=== PATIENT | female | born 1945 | race Caucasian/White ===

== ENCOUNTER 2019-06-02 12:07 | Observation (INO) | payer OTHER ==
[2019-06-02 12:25] VITALS: BMI 24.7
--- NOTE | 2019-06-02 12:57 | EKG ---
Test Reason : Blood Pressure : / mmHG Vent. Rate : 087 BPM Atrial Rate : 087 BPM P-R Int : 148 ms QRS Dur : 098 ms QT Int : 372 ms P-R-T Axes : 058 009 052 degrees QTc Int : 447 ms SINUS RHYTHM WITH OCCASIONAL PREMATURE VENTRICULAR COMPLEXES POSSIBLE LEFT ATRIAL ENLARGEMENT BORDERLINE ECG NO PREVIOUS ECGS AVAILABLE Confirmed by MD VANESA, DAYTON ([id number]) on 06/02/2019 12:56:33 PM Referred By: Confirmed By:DAYTON ALEXIS MD
[2019-06-02] MEDS ORDERED: FAMOTIDINE 20 MG TABLET PO ONE (13:43)
[2019-06-02] MEDS ORDERED: MAG HYDROX/AL HYDROX/SIMETH -MYLANTA- ORAL SUSPENSION PO ONE (13:43)
--- NOTE | 2019-06-02 13:47 | PDOC ---
History of Present Illness - General Chief Complaint: Chest Pain Stated Complaint: CHEST PAIN Time Seen by Provider: 06/02/19 13:15 - History of Present Illness Initial Comments: Radha Morgan is a 74 y/o female with reported PMH significant for HTN, HLD, DM, presenting with lower sternal chest pain and pain "at the mouth of her stomach" that started at 7:30am yesterday. Reports that the pain lasted for around 15 min and then subsided. No pain radiation. At 3:30am this morning she had a similar type of pain but more severe, lost consciousness, fell, and woke up on the ground. Denies prodome, dizziness, heart palpitations. Denies dysuria/diarrhea. Denies lower extremity swelling. Denies headache. Denies vision changes. Past History - Past Medical History Allergies/Adverse Reactions: Allergies Allergy/AdvReac Type Severity Reaction Status Date / Time No Known Allergies Allergy Verified 06/02/19 12:20 Home Medications: Ambulatory Orders Unobtainable 06/02/19 COPD: No Diabetes: Yes - Psycho Social/Smoking Cessation Hx Smoking History: Never smoked Hx Alcohol Use: No Drug/Substance Use Hx: No Substance Use Type: None Review of Systems - Review of Systems Comments:: GENERAL/CONSTITUTIONAL: No fever or chills. No weakness._ HEAD, EYES, EARS, NOSE AND THROAT: No change in vision. No change in hearing. No sore throat._ CARDIOVASCULAR: Reports mild chest pain. No shortness of breath. RESPIRATORY: Denies cough, hemoptysis_ GASTROINTESTINAL: Reports nausea. No vomiting, diarrhea or constipation._ GENITOURINARY: No dysuria, frequency, or change in urination._ MUSCULOSKELETAL: No joint or muscle swelling or pain. No neck or back pain._ SKIN: No rash_ NEUROLOGIC: Reports LOC. No headache, vertigo, or change in strength/sensation._ ENDOCRINE: No increased thirst. No abnormal weight change_ HEMATOLOGIC/LYMPHATIC: No anemia, easy bleeding, or history of blood clots._ ALLERGIC/IMMUNOLOGIC: No hives or skin allergy._ *Physical Exam - Vital Signs Last Vital Signs Temp Pulse Resp BP Pulse Ox 97.8 F 94 H 18 119/65 99 06/02/19 12:24 06/02/19 12:24 06/02/19 12:24 06/02/19 12:24 06/02/19 12:24 - Physical Exam GENERAL: Awake, alert, and oriented to person/place/time, in no acute distress_ HEAD: No signs of trauma, normocephalic, atraumatic _ EYES: PERRLA, EOMI, sclera anicteric, conjunctiva clear_ ENT: Hearing grossly normal, nares patent, oropharynx clear without exudates. No uvular deviation. Moist mucosa_ NECK: Normal ROM, supple, no lymphadenopathy, JVD, or masses_ LUNGS: No distress, speaks in full sentences, clear to auscultation bilaterally _ HEART: Regular rate and rhythm, normal S1 and S2, no murmurs appreciated, peripheral pulses normal and equal bilaterally._ ABDOMEN: Soft, nontender, normoactive bowel sounds. No guarding, no rebound. No masses_ EXTREMITIES: Normal inspection, Normal range of motion, no edema. No clubbing or cyanosis_ NEUROLOGICAL: CN II-XII tested and intact. Sensation intact to sharp/dull differentiation in all extremities. Motor: Normal tone and bulk. No abnormal movements appreciated. No pronator drif t. Strength tested and 5/5 in bilateral wrist flexion/extension, elbow flexion/extension, shoulder abduction, straight leg raise, knee flexion/extension, ankle dorsiflexion/plantarflexion. Patient ambulates with a steady gait. Coordination: Finger to nose and heel to sommer testing intact bilaterally. SKIN: Warm, Dry, normal turgor, no rashes or lesions noted_ ED Treatment Course - LABORATORY CBC & Chemistry Diagram: 06/02/19 13:36 06/02/19 13:36 - ADDITIONAL ORDERS Additional order review: Laboratory Results 06/02/19 13:36 Sodium 138 Potassium 4.2 Chloride 104 Carbon Dioxide 27 Anion Gap 7 L BUN 18.7 H Creatinine 0.8 Est GFR (CKD-EPI)AfAm 84.18 Est GFR (CKD-EPI)NonAf 72.63 Random Glucose 144 H Calcium 9.3 Total Bilirubin 0.7 AST 82 H ALT 83 H Alkaline Phosphatase 180 H Creatine Kinase 46 Troponin I < 0.02 Total Protein 7.4 Albumin 3.9 06/02/19 13:36 RBC 5.05 MCV 82.0 MCHC 33.0 RDW 14.4 MPV 7.5 Neutrophils % 86.0 H Lymphocytes % 8.9 Monocytes % 4.5 Eosinophils % 0.4 Basophils % 0.2 - RADIOLOGY Radiology Studies Ordered: Category Date Time Status CHEST X-RAY PORTABLE* [RAD] Stat Radiology 06/02/19 13:33 Completed - Medications Given in the ED: ED Medications Discontinued Medications Generic Name Dose Route Start Last Admin Trade Name Wesleyq PRN Reason Stop Dose Admin Al Hydroxide/Mg Hydroxide 30 ml 06/02/19 13:43 06/02/19 14:00 Mylanta Suspension - PO 06/02/19 13:44 30 ml ONCE ONE Administration Famotidine 20 mg 06/02/19 13:43 06/02/19 14:00 Pepcid - PO 06/02/19 13:44 20 mg ONCE ONE Administration Medical Decision Making - Medical Decision Making 06/02/19 13:55 74F presenting s/p lower sternal chest pain, fall, and syncope. -cbc, cmp -ekg, trop, cxr -ct head -ua, ucx -GI cocktail 06/02/19 13:56 EKG shows sinus rhythm with premature ventricular complexes, 87 bpm, no ST elevation, QTc 447. 06/02/19 14:58 CT head negative for acute bleed or intracranial pathology. CXR negative for acute chest pathology. 06/02/19 14:59 Labs reviewed. Laboratory Last Values WBC 6.0 K/mm3 (4.0-10.0) 06/02/19 13:36 RBC 5.05 M/mm3 (3.60-5.2) 06/02/19 13:36 Hgb 13.7 GM/dL (10.7-15.3) 06/02/19 13:36 Hct 41.4 % (32.4-45.2) 06/02/19 13:36 MCV 82.0 fl (80-96) 06/02/19 13:36 MCH 27.1 pg (25.7-33.7) 06/02/19 13:36 MCHC 33.0 g/dl (32.0-36.0) 06/02/19 13:36 RDW 14.4 % (11.6-15.6) 06/02/19 13:36 Plt Count 209 K/MM3 (134-434) 06/02/19 13:36 MPV 7.5 fl (7.5-11.1) 06/02/19 13:36 Absolute Neuts (auto) 5.2 K/mm3 (1.5-8.0) 06/02/19 13:36 Neutrophils % 86.0 % (42.8-82.8) H 06/02/19 13:36 Lymphocytes % 8.9 % (8-40) 06/02/19 13:36 Monocytes % 4.5 % (3.8-10.2) 06/02/19 13:36 Eosinophils % 0.4 % (0-4.5) 06/02/19 13:36 Basophils % 0.2 % (0-2.0) 06/02/19 13:36 Nucleated RBC % 0 % (0-0) 06/02/19 13:36 Sodium 138 mmol/L (136-145) 06/02/19 13:36 Potassium 4.2 mmol/L (3.5-5.1) 06/02/19 13:36 Chloride 104 mmol/L (98-107) 06/02/19 13:36 Carbon Dioxide 27 mmol/L (21-32) 06/02/19 13:36 Anion Gap 7 MMOL/L (8-16) L 06/02/19 13:36 BUN 18.7 mg/dL (7-18) H 06/02/19 13:36 Creatinine 0.8 mg/dL (0.55-1.3) 06/02/19 13:36 Est GFR (CKD-EPI)AfAm 84.18 06/02/19 13:36 Est GFR (CKD-EPI)NonAf 72.63 06/02/19 13:36 Random Glucose 144 mg/dL (74-106) H 06/02/19 13:36 Calcium 9.3 mg/dL (8.5-10.1) 06/02/19 13:36 Total Bilirubin 0.7 mg/dL (0.2-1) 06/02/19 13:36 AST 82 U/L (15-37) H 06/02/19 13:36 ALT 83 U/L (13-61) H 06/02/19 13:36 Alkaline Phosphatase 180 U/L (45-117) H 06/02/19 13:36 Creatine Kinase 46 U/L (26-192) 06/02/19 13:36 Troponin I < 0.02 ng/ml (0.00-0.05) 06/02/19 13:36 Total Protein 7.4 g/dl (6.4-8.2) 06/02/19 13:36 Albumin 3.9 g/dl (3.4-5.0) 06/02/19 13:36 06/02/19 15:25 D/w Dr. Lopez who accepts the pt for admission under Dr. Koch. Discharge - Discharge Information Problems reviewed: Yes Clinical Impression/Diagnosis: Syncope Condition: Stable - Admission Yes - Follow up/Referral Referrals: Demarco Jiang MD [Primary Care Provider] - - Patient Discharge Instructions - Post Discharge Activity
[2019-06-02] MEDS ORDERED: MAG HYDROX/AL HYDROX/SIMETH 30 ML UNIT-DOSE CUP ONE (13:57)
[2019-06-02] MEDS ORDERED: FAMOTIDINE 20 MG TABLET ONE (13:57)
[2019-06-02 14:05] LABS: BASO % 0.2 % (0-2.0); EOS % 0.4 % (0-4.5); HEMATOCRIT 41.4 % (32.4-45.2); HEMOGLOBIN 13.7 GM/dL (10.7-15.3); LYMPH % 8.9 % (8-40); MCH 27.1 pg (25.7-33.7); MEAN PLT VOLUME 7.5 fl (7.5-11.1); MONO % 4.5 % (3.8-10.2); PLATELET COUNT 209 K/MM3 (134-434); RBC 5.05 M/mm3 (3.60-5.2); RDW 14.4 % (11.6-15.6)
[2019-06-02 14:34] LABS: ALBUMIN 3.9 g/dl (3.4-5.0); ALK PHOS 180 U/L (45-117); ANION GAP 7 MMOL/L (8-16); BILIRUBIN,TOTAL 0.7 mg/dL (0.2-1); BLOOD UREA NITROGEN 18.7 mg/dL (7-18); CALCIUM 9.3 mg/dL (8.5-10.1); CHLORIDE 104 mmol/L (98-107); CO2 27 mmol/L (21-32); CREATININE 0.8 mg/dL (0.55-1.3); GLUCOSE,RANDOM 144 mg/dL (74-106); POTASSIUM 4.2 mmol/L (3.5-5.1); SGOT/AST 82 U/L (15-37); SGPT/ALT 83 U/L (13-61); SODIUM 138 mmol/L (136-145); TOT PROT 7.4 g/dl (6.4-8.2)
--- NOTE | 2019-06-02 15:21 | PDOC ---
Documentation entered by Kristin Das SCRIBE, acting as scribe for Cristobal Pizarro MD. Cristobal Pizarro MD: This documentation has been prepared by the Thiago riggins Xhesika, SCRIBE, under my direction and personally reviewed by me in its entirety. I confirm that the documentation accurately reflects all work, treatment, procedures, and medical decision making performed by me. Attending Attestation - Resident Resident Name: Michael Barber - ED Attending Attestation I have performed the following: I have examined & evaluated the patient, The case was reviewed & discussed with the resident, I agree w/resident's findings & plan, Exceptions are as noted - HPI HPI: 06/02/19 14:08 The patient is a 74 year old female with a significant PMH of HTN, HLD, DM who presents to the emergency department for chest pain since yesterday. Pt states her symptoms last approximately 15 minutes before self resolving and recurring again. Pt states she had another episode this morning causing her to lose consciousness and fall, prompting her arrival to the ED. The patient denies, shortness of breath, headache and dizziness. Denies fever, chills, cough, nausea, vomiting, diarrhea and constipation. Allergies: NKDA - Physicial Exam PE: 06/02/19 15:18 EXAMINATION CONSTITUTIONAL: Awake and alert; well-nourished; in no apparent distress HEAD: Normocephalic; atraumatic EYES: PERRL; EOM intact ; No nystagmus ENMT: External appears normal; normal oropharynx NECK: Supple; non-tender; no cervical lymphadenopathy CARD: Normal S1, S2; 2/6 systolic ejection murmurs, no rubs, or gallops RESP: Normal chest excursion with respiration; breath sounds clear and equal bilaterally; no wheezes, rhonchi, or rales ABD: Soft, non-distended; non-tender; no palpable organomegaly, no palpable hernias EXT: Normal ROM in all four extremities; non-tender to palpation; distal pulses intact SKIN: Warm, dry, no rash NEURO: Cranial nerves II through XII grossly intact; motor is five 5 x 4; no pronation drift; gait is stable - Medical Decision Making 06/02/19 15:20 74-year-old female with multiple committees presents with several episodes of chest pain and syncope. Will obtain CT head to rule out intracranial pathology. EKG shows sinus rhythm with frequent APBs with sinus pauses; will obtain CBC/CMP/cardiac profile. Likely admission.
--- NOTE | 2019-06-02 16:41 | HP ---
CHIEF COMPLAINT: PCP: HISTORY OF PRESENT ILLNESS: Pt is a 74 yo F with PMHx of DM, HTN, arthritis presenting from home after a syncopal attack today. Pt reports having abdominal pain, more epigastric when she woke up with nausea about 3am this morning. As she headed to the bathroom she suddenly fell. No prodromal symptoms, no dizziness, no chest pain, no bladder or bowel incontinence. Pt is unaware how long she was on the floor. Noted a bruise on her face. Pt woke up covered in sweat. No bowel or bladder incontinence. No fever, no hx of seizures. Pt had similar abdominal cramps yesterday evening with nausea, no vomiting. No loose stools, no bloody stools, Has had colonosocopy in the past. Pt drove herself to [facility] today to book her routine mamogram and do an Xray and was referred from there to the ED. Pt denies sick contact or travel, no cough, no leg swelling. Pt did not take her meds today. She goes to Dr Jiang at [address] [place] [id number] who she reports gives her meds, she has no pharmacy that she uses. Listed pharmacy in EMR does not carry her meds. Unable to verify her medications ER course was notable for: (1) CT head-neg, CXR- neg (2) Mylanta (3) Recent Travel: PAST MEDICAL HISTORY: PAST SURGICAL HISTORY: Varicose vein surgery Social History: Smoking:Denies Alcohol:social hx Drugs: Denies Allergies No Known Allergies Allergy (Verified 06/02/19 12:20) HOME MEDICATIONS: Home Medications Medication Instructions Recorded Unobtainable 06/02/19 REVIEW OF SYSTEMS CONSTITUTIONAL: Absent: fever, chills, diaphoresis, generalized weakness, malaise, loss of appetite, weight change HEENT: Absent: rhinorrhea, nasal congestion, throat pain, throat swelling, difficulty swallowing, mouth swelling, ear pain, eye pain, visual changes CARDIOVASCULAR: Absent: chest pain, syncope, palpitations, irregular heart rate, lightheadedness, peripheral edema RESPIRATORY: Absent: cough, shortness of breath, dyspnea with exertion, orthopnea, wheezing, stridor, hemoptysis GASTROINTESTINAL: Absent: abdominal pain, abdominal distension, nausea, vomiting, diarrhea, constipation, melena, hematochezia GENITOURINARY: Absent: dysuria, frequency, urgency, hesitancy, hematuria, flank pain, genital pain MUSCULOSKELETAL: Absent: myalgia, arthralgia, joint swelling, back pain, neck pain SKIN: Absent: rash, itching, pallor HEMATOLOGIC/IMMUNOLOGIC: Absent: easy bleeding, easy bruising, lymphadenopathy, frequent infections ENDOCRINE: Absent: unexplained weight gain, unexplained weight loss, heat intolerance, cold intolerance NEUROLOGIC: Absent: headache, focal weakness or paresthesias, dizziness, unsteady gait, seizure, mental status changes, bladder or bowel incontinence PSYCHIATRIC: Absent: anxiety, depression, suicidal or homicidal ideation, hallucinations. PHYSICAL EXAMINATION Vital Signs - 24 hr 06/02/19 12:24 Temperature 97.8 F Pulse Rate 94 H Respiratory 18 Rate Blood Pressure 119/65 O2 Sat by Pulse 99 Oximetry (%) GENERAL: Awake, alert, and fully oriented, in no acute distress. HEAD: Normal with no signs of trauma. EYES: Pupils equal, round and reactive to light, extraocular movements intact, sclera anicteric, conjunctiva clear. No lid lag. EARS, NOSE, THROAT: Moist mucous membranes. NECK: Normal range of motion, supple without lymphadenopathy, JVD, or masses. LUNGS: Breath sounds equal, clear to auscultation bilaterally. No wheezes, and no crackles. HEART: Regular rate and rhythm, normal S1 and S2 , absent orthostatics ABDOMEN: Soft, nontender, not distended, normoactive bowel sounds, no guarding, no rebound, no masses. MUSCULOSKELETAL: Hesitancy with active L shoulder motion (chronic) No redness, distinct bicep muscle bulk anteriorly UPPER EXTREMITIES: 2+ pulses, warm, well-perfused. No cyanosis. No clubbing. No peripheral edema. LOWER EXTREMITIES: 2+ pulses, warm, well-perfused. No calf tenderness. No peripheral edema. NEUROLOGICAL: AAOx 3, no facial droop. Normal strength b/l LE, RLE. Slight L shoulder restriction of movement. Cranial nerves II-XII intact. Normal speech. Gait not observed Laboratory Results - last 24 hr 06/02/19 06/02/19 13:36 13:36 WBC 6.0 RBC 5.05 Hgb 13.7 Hct 41.4 MCV 82.0 MCH 27.1 MCHC 33.0 RDW 14.4 Plt Count 209 MPV 7.5 Absolute Neuts (auto) 5.2 Neutrophils % 86.0 H Lymphocytes % 8.9 Monocytes % 4.5 Eosinophils % 0.4 Basophils % 0.2 Nucleated RBC % 0 Sodium 138 Potassium 4.2 Chloride 104 Carbon Dioxide 27 Anion Gap 7 L BUN 18.7 H Creatinine 0.8 Est GFR (CKD-EPI)AfAm 84.18 Est GFR (CKD-EPI)NonAf 72.63 Random Glucose 144 H Calcium 9.3 Total Bilirubin 0.7 AST 82 H ALT 83 H Alkaline Phosphatase 180 H Creatine Kinase 46 Troponin I < 0.02 Total Protein 7.4 Albumin 3.9 ASSESSMENT/PLAN: Pt is a 74 yo F with PMHx of DM, HTN, arthritis presenting from home after a syncopal attack today. Pt reports having abdominal pain, more epigastric when she woke up with nausea about 3am this morning. As she headed to the bathroom she suddenly fell. #Syncope possibly vasovagal r/o cardiogenic Associated with nausea, reports excessive sweating No prior cardiac events Absent orthostatics carotid US Echo #S/p fall CT head neg R eye brow bruise, no active bleed Pt reports independence in ADL, drove herself to hospital fall precautions #DM Unable to confirm home meds Pt placed on ISS BGM Diabetic diet #HTN Pt reports being on lisinopril 10mg Unable to confirm home meds #arthritis Reports falling on R knee No obvious swelling or erythema, no joint deformity Will monitor #Elevated liver enzymes Pt with nausea and abdominal pain Hepatitis panel Abd US tele obs Visit type - Emergency Visit Emergency Visit: Yes ED Registration Date: 06/02/19 Care time: The patient presented to the Emergency Department on the above date and was hospitalized for further evaluation of their emergent condition. - New Patient This patient is new to me today: Yes Date on this admission: 06/02/19 - Critical Care Critical Care patient: No ATTENDING PHYSICIAN STATEMENT I saw and evaluated the patient. I reviewed the resident's note and discussed the case with the resident. I agree with the resident's findings and plan as documented. SUBJECTIVE: OBJECTIVE: ASSESSMENT AND PLAN:
--- NOTE | 2019-06-02 16:50 | PN ---
Teaching Attending Note Name of Resident: Jerrica Lopez ATTENDING PHYSICIAN STATEMENT I saw and evaluated the patient. I reviewed the resident's note and discussed the case with the resident. I agree with the resident's findings and plan as documented. SUBJECTIVE: Pt is a 74 yo F with PMHx of DM, HTN, arthritis presenting from home after a syncopal attack today. Pt reports having abdominal pain, more epigastric when she woke up with nausea about 3am this morning. As she headed to the bathroom she suddenly fell. only prodromal pain in the epigastric and nausea, and wanted to throw up symptoms, no dizziness, no chest pain, no bladder or bowel incontinence. Pt woke up covered in sweat. No bowel or bladder incontinence. No fever, no hx of seizures. Pt had similar abdominal cramps yesterday evening with nausea, no vomiting. No loose stools, no bloody stools, Has had colonsocopy in the past. Pt drove herself to [facility] today to book her routine mamogram and do and Xray and was referred from there to the ED. Pt denies sick contact or travel, no cough, no leg swelling. Pt did not take her meds today. OBJECTIVE: O/E is comfortable, nad alert awake oriented into 3, vss neck supple no jvd cvs s1/s2/0 chest ctab abd benign ext no c/c/e neuro non focal ASSESSMENT AND PLAN: ASSESSMENT/PLAN: Syncope possibly vasovagal r/o cardiogenic tele obs carotid US Echo dm diet ISS fall precautions will get the list of the home meds and fu, ct head is negative, tele bc ekg shows pvcs, r;o cardiac cause,
[2019-06-02 17:12] LABS: PH,URINE 5.5 (5.0-8.0); URINE APPEARANCE CLEAR; URINE BILIRUBIN NEGATIVE (NEGATIVE); URINE COLOR YELLOW; URINE GLUCOSE (UA) 3+ (NEGATIVE); URINE KETONE TRACE (NEGATIVE); URINE LEUK ESTERASE NEGATIVE (NEGATIVE); URINE NITRITE NEGATIVE (NEGATIVE); URINE PROTEIN NEGATIVE (NEGATIVE); URINE UROBILINOGEN 0.2 mg/dL (0.2-1.0)
[2019-06-02 17:17] VITALS: TEMP 98.5
[2019-06-02] MEDS ORDERED: INSULIN SLIDING SCALE (NOVOLOG) 1 VIAL SQ SCH ×2 (22:00)
[2019-06-02] MEDS ORDERED: INSULIN (NOVOLOG) ASPART 100 UNITS/ML 10ML VIAL ONE (22:16)
[2019-06-03 06:28] LABS: BASO % 0.7 % (0-2.0); EOS % 1.3 % (0-4.5); HEMATOCRIT 39.6 % (32.4-45.2); HEMOGLOBIN 13.3 GM/dL (10.7-15.3); LYMPH % 14.3 % (8-40); MCH 27.2 pg (25.7-33.7); MCHC 33.6 g/dl (32.0-36.0); MEAN PLT VOLUME 7.8 fl (7.5-11.1); MONO % 9.9 % (3.8-10.2); NEUT % 73.8 % (42.8-82.8); PLATELET COUNT 171 K/MM3 (134-434); RBC 4.89 M/mm3 (3.60-5.2); RDW 14.1 % (11.6-15.6); WHITE BLOOD COUNT 4.1 K/mm3 (4.0-10.0)
[2019-06-03 06:41] LABS: INR 1.13 (0.83-1.09); PROTHROMBIN TIME (PATIENT) 13.4 SEC (9.7-13.0)
[2019-06-03 06:44] LABS: ACTIVATED PTT 37.3 SECONDS (25.2-36.5)
[2019-06-03 06:59] LABS: ALBUMIN 3.3 g/dl (3.4-5.0); ALK PHOS 160 U/L (45-117); ANION GAP 9 MMOL/L (8-16); BILIRUBIN,TOTAL 0.9 mg/dL (0.2-1); BLOOD UREA NITROGEN 17.8 mg/dL (7-18); CALCIUM 8.3 mg/dL (8.5-10.1); CHLORIDE 105 mmol/L (98-107); CO2 25 mmol/L (21-32); CREATININE 0.6 mg/dL (0.55-1.3); GLUCOSE,RANDOM 116 mg/dL (74-106); MAGNESIUM 1.5 mg/dL (1.8-2.4); PHOSPHOROUS 3.1 mg/dL (2.5-4.9); SGOT/AST 46 U/L (15-37); SGPT/ALT 70 U/L (13-61); SODIUM 139 mmol/L (136-145); TOT PROT 6.7 g/dl (6.4-8.2)
[2019-06-03 07:31] VITALS: BP 121/75; PULSE 66
[2019-06-03] MEDS ORDERED: MAGNESIUM SULF 50% (8.12 MEQ/2 ML-1 GM VIAL) IVPB ONE (07:45)
[2019-06-03] MEDS ORDERED: MAGNESIUM 1GM/D5W - 1 GM/100 ML IVPB IVPB ONE (07:53)
[2019-06-03] MEDS ORDERED: ENOXAPARIN NA (PORCINE) 40 MG/0.4 ML DISP.SYRIN SQ SCH (10:00)
[2019-06-03] MEDS ORDERED: ENOXAPARIN NA (PORCINE) 60 MG/0.6 ML DISP.SYRIN SQ ONE (10:16)
--- NOTE | 2019-06-03 11:31 | ECHO ---
Name: HEATHER NOBLEANTINA Exam:Adult Echocardiogram Study Date: 06/03/2019 10:25 AM Age: 74 yrs Reason For Study: Syncope R/O cardiogenic Height: 61 in Weight: 131 lb BSA: 1.6 m2 MMode/2D Measurements & Calculations IVSd: 0.90 cm Ao root diam: 3.0 cm LVIDd: 3.1 cm LA dimension: 3.6 cm LVIDs: 2.4 cm ACS: 1.9 cm LVPWd: 0.99 cm EDV(Teich): 38.8 ml LVOT diam: 2.0 cm ESV(Teich): 20.3 ml RV S Luis M: 15.0 cm/sec Doppler Measurements & Calculations MV E max luis m: 52.9 cm/sec Ao V2 max: 136.8 cm/sec MV A max luis m: 103.3 cm/sec Ao max P.5 mmHg MV E/A: 0.51 Ao V2 mean: 96.5 cm/sec MV dec time: 0.24 sec Ao mean P.3 mmHg Ao V2 VTI: 26.8 cm MOY(I,D): 2.7 cm2 MOY(V,D): 2.2 cm2 LV V1 max P.9 mmHg SV(LVOT): 71.1 ml LV V1 mean P.1 mmHg LV V1 max: 98.5 cm/sec LV V1 mean: 68.7 cm/sec LV V1 VTI: 23.2 cm TR max luis m: 146.6 cm/sec PA V2 max: 78.1 cm/sec TR max P.6 mmHg PA max P.4 mmHg Med Peak E' Luis M: 4.5 cm/sec Med E/e': 11.9 Lat Peak E' Luis M: 6.4 cm/sec Lat E/e': 8.2 Procedure A complete two-dimensional transthoracic echocardiogram was performed (2D, M-mode, Doppler and color flow Doppler). Left Ventricle The left ventricular size, thickness and function are normal. The left ventricular ejection fraction is normal. Ejection Fraction = 55-60%. The left ventricular wall motion is normal. Right Ventricle The right ventricle is normal in size and function. Atria Normal left and right atrial size and function. Mitral Valve There is no mitral regurgitation noted. Tricuspid Valve There is trace tricuspid regurgitation. There was insufficient TR detected to calculate RV systolic p ressure. Aortic Valve No hemodynamically significant valvular aortic stenosis. No aortic regurgitation is present. Pulmonic Valve There is no pulmonic valvular regurgitation. Great Vessels The aortic root is normal size. Pericardium/Pleura There is no pericardial effusion. Interpretation Summary The left ventricular size, thickness and function are normal The right ventricle is normal in size and function. There is trace tricuspid regurgitation. MD Scooby Bell 06/03/2019 11:31 AM
--- NOTE | 2019-06-03 13:09 | DS ---
Physical Exam: SUBJECTIVE: Patient seen and examined at bedside. Reports complete symptom resolution. Denies headache, dizziness, nausea, vomiting, diarrhea, fevers, chills, abdominal pain or chest pain. Patient reported to me that she was able to walk without issue or without becoming dizzy. OBJECTIVE: Vital Signs Period Temp Pulse Resp BP Sys/Garcia Pulse Ox Last 24 Hr 98.5 F-98.5 F 66-88 18-19 119-136/74-78 96-99 PHYSICAL EXAM GENERAL: A&Ox3, no acute distress EYES: PERRLA, EOMI ENT: Moist mucus membranes NECK: No JVD LUNGS: CTA, no wheezes HEART: RRR, no murmurs ABDOMEN: Soft, nontender, BS present MUSCULOSKELETAL: No CVA Tenderness, Mild R knee tenderness, able to bear weight EXTREMITIES: 2+ pulses, no edema. NEUROLOGICAL: Cranial nerves II-XII intact. LABS Laboratory Results - last 24 hr 06/02/19 06/02/19 06/02/19 13:36 13:36 16:43 WBC 6.0 RBC 5.05 Hgb 13.7 Hct 41.4 MCV 82.0 MCH 27.1 MCHC 33.0 RDW 14.4 Plt Count 209 MPV 7.5 Absolute Neuts (auto) 5.2 Neutrophils % 86.0 H Lymphocytes % 8.9 Monocytes % 4.5 Eosinophils % 0.4 Basophils % 0.2 Nucleated RBC % 0 PT with INR INR PTT (Actin FS) Sodium 138 Potassium 4.2 Chloride 104 Carbon Dioxide 27 Anion Gap 7 L BUN 18.7 H Creatinine 0.8 Est GFR (CKD-EPI)AfAm 84.18 Est GFR (CKD-EPI)NonAf 72.63 POC Glucometer Random Glucose 144 H Calcium 9.3 Phosphorus Magnesium Total Bilirubin 0.7 AST 82 H ALT 83 H Alkaline Phosphatase 180 H Creatine Kinase 46 Troponin I < 0.02 Total Protein 7.4 Albumin 3.9 TSH Urine Color Yellow Urine Appearance Clear Urine pH 5.5 Ur Specific [place] 1.022 Urine Protein Negative Urine Glucose (UA) 3+ H Urine Ketones Trace H Urine Blood Negative Urine Nitrite Negative Urine Bilirubin Negative Urine Urobilinogen 0.2 Ur Leukocyte Esterase Negative 06/02/19 06/02/19 06/03/19 17:15 19:42 05:40 WBC 4.1 RBC 4.89 Hgb 13.3 Hct 39.6 MCV 81.0 MCH 27.2 MCHC 33.6 RDW 14.1 Plt Count 171 MPV 7.8 Absolute Neuts (auto) 3.1 Neutrophils % 73.8 Lymphocytes % 14.3 D Monocytes % 9.9 D Eosinophils % 1.3 D Basophils % 0.7 D Nucleated RBC % 0 PT with INR INR PTT (Actin FS) Sodium Potassium Chloride Carbon Dioxide Anion Gap BUN Creatinine Est GFR (CKD-EPI)AfAm Est GFR (CKD-EPI)NonAf POC Glucometer 222 Random Glucose Calcium Phosphorus Magnesium Total Bilirubin AST ALT Alkaline Phosphatase Creatine Kinase Troponin I < 0.02 Total Protein Albumin TSH Urine Color Urine Appearance Urine pH Ur Specific [place] Urine Protein Urine Glucose (UA) Urine Ketones Urine Blood Urine Nitrite Urine Bilirubin Urine Urobilinogen Ur Leukocyte Esterase 06/03/19 06/03/19 06/03/19 05:40 05:40 07:35 WBC RBC Hgb Hct MCV MCH MCHC RDW Plt Count MPV Absolute Neuts (auto) Neutrophils % Lymphocytes % Monocytes % Eosinophils % Basophils % Nucleated RBC % PT with INR 13.40 H INR 1.13 H PTT (Actin FS) 37.3 H Sodium 139 Potassium 4.0 Chloride 105 Carbon Dioxide 25 Anion Gap 9 BUN 17.8 Creatinine 0.6 Est GFR (CKD-EPI)AfAm 104.07 Est GFR (CKD-EPI)NonAf 89.79 POC Glucometer 133 Random Glucose 116 H Calcium 8.3 L Phosphorus 3.1 Magnesium 1.5 L Total Bilirubin 0.9 AST 46 H ALT 70 H Alkaline Phosphatase 160 H Creatine Kinase Troponin I < 0.02 Total Protein 6.7 Albumin 3.3 L TSH 1.15 Urine Color Urine Appearance Urine pH Ur Specific [place] Urine Protein Urine Glucose (UA) Urine Ketones Urine Blood Urine Nitrite Urine Bilirubin Urine Urobilinogen Ur Leukocyte Esterase 06/03/19 12:17 WBC RBC Hgb Hct MCV MCH MCHC RDW Plt Count MPV Absolute Neuts (auto) Neutrophils % Lymphocytes % Monocytes % Eosinophils % Basophils % Nucleated RBC % PT with INR INR PTT (Actin FS) Sodium Potassium Chloride Carbon Dioxide Anion Gap BUN Creatinine Est GFR (CKD-EPI)AfAm Est GFR (CKD-EPI)NonAf POC Glucometer 164 Random Glucose Calcium Phosphorus Magnesium Total Bilirubin AST ALT Alkaline Phosphatase Creatine Kinase Troponin I Total Protein Albumin TSH Urine Color Urine Appearance Urine pH Ur Specific [place] Urine Protein Urine Glucose (UA) Urine Ketones Urine Blood Urine Nitrite Urine Bilirubin Urine Urobilinogen Ur Leukocyte Esterase EKG: NSR w/ occasional PVCs Carotid Doppler: negative for significant stenosis Echo: within normal limits US Abd/Pelvis: thickening of gallbladder wall with sludge, without pericholecystic fluid HOSPITAL COURSE: Date of Admission:06/02/19 74 yo F with PMHx of DM, HTN, arthritis presented to hospital for syncopal episode after having abdominal pain and nausea yesterday. Reported that she never had that before. Testing for syncopal causes returned negative as per above studies. She was noted to have mildly elevated LFTs that improved the following day. No abnormalities were seen on monitoring analyst. She was discharged with close followup to her PCP and a neurology director for the elevated liver enzymes and gallbladder findings on ultrasound. Date of Discharge: 06/03/19 Minutes to complete discharge: 35 <Aroldo Batista - Last Filed: 06/03/19 15:33> Physical Exam: SUBJECTIVE: Patient seen and examined OBJECTIVE: Vital Signs Period Temp Pulse Resp BP Sys/Garcia Pulse Ox Last 24 Hr 98.5 F 66-88 18-18 119-131/74-77 96-96 PHYSICAL EXAM GENERAL: The patient is awake, alert, and fully oriented, in no acute distress. HEAD: Normal with no signs of trauma. EYES: PERRL, extraocular movements intact, sclera anicteric, conjunctiva clear. ENT: Ears normal, nares patent, oropharynx clear without exudates, moist mucous membranes. NECK: Trachea midline, full range of motion, supple. LUNGS: Breath sounds equal, clear to auscultation bilaterally, no wheezes, no crackles, no accessory muscle use. HEART: Regular rate and rhythm, S1, S2 without murmur, rub or gallop. ABDOMEN: Soft, nontender, nondistended, normoactive bowel sounds, no guarding, no rebound, no hepatosplenomegaly, no masses. EXTREMITIES: 2+ pulses, warm, well-perfused, no edema. NEUROLOGICAL: Cranial nerves II through XII grossly intact. Normal speech, gait not observed. PSYCH: Normal mood, normal affect. SKIN: Warm, dry, normal turgor, no rashes or lesions noted. LABS Laboratory Results - last 24 hr 06/02/19 06/02/19 06/02/19 16:43 17:15 19:42 WBC RBC Hgb Hct MCV MCH MCHC RDW Plt Count MPV Absolute Neuts (auto) Neutrophils % Lymphocytes % Monocytes % Eosinophils % Basophils % Nucleated RBC % PT with INR INR PTT (Actin FS) Sodium Potassium Chloride Carbon Dioxide Anion Gap BUN Creatinine Est GFR (CKD-EPI)AfAm Est GFR (CKD-EPI)NonAf POC Glucometer 222 Random Glucose Calcium Phosphorus Magnesium Total Bilirubin AST ALT Alkaline Phosphatase Troponin I < 0.02 Total Protein Albumin TSH Urine Color Yellow Urine Appearance Clear Urine pH 5.5 Ur Specific [place] 1.022 Urine Protein Negative Urine Glucose (UA) 3+ H Urine Ketones Trace H Urine Blood Negative Urine Nitrite Negative Urine Bilirubin Negative Urine Urobilinogen 0.2 Ur Leukocyte Esterase Negative 06/03/19 06/03/19 06/03/19 05:40 05:40 05:40 WBC 4.1 RBC 4.89 Hgb 13.3 Hct 39.6 MCV 81.0 MCH 27.2 MCHC 33.6 RDW 14.1 Plt Count 171 MPV 7.8 Absolute Neuts (auto) 3.1 Neutrophils % 73.8 Lymphocytes % 14.3 D Monocytes % 9.9 D Eosinophils % 1.3 D Basophils % 0.7 D Nucleated RBC % 0 PT with INR 13.40 H INR 1.13 H PTT (Actin FS) 37.3 H Sodium 139 Potassium 4.0 Chloride 105 Carbon Dioxide 25 Anion Gap 9 BUN 17.8 Creatinine 0.6 Est GFR (CKD-EPI)AfAm 104.07 Est GFR (CKD-EPI)NonAf 89.79 POC Glucometer Random Glucose 116 H Calcium 8.3 L Phosphorus 3.1 Magnesium 1.5 L Total Bilirubin 0.9 AST 46 H ALT 70 H Alkaline Phosphatase 160 H Troponin I < 0.02 Total Protein 6.7 Albumin 3.3 L TSH 1.15 Urine Color Urine Appearance Urine pH Ur Specific [place] Urine Protein Urine Glucose (UA) Urine Ketones Urine Blood Urine Nitrite Urine Bilirubin Urine Urobilinogen Ur Leukocyte Esterase 06/03/19 06/03/19 07:35 12:17 WBC RBC Hgb Hct MCV MCH MCHC RDW Plt Count MPV Absolute Neuts (auto) Neutrophils % Lymphocytes % Monocytes % Eosinophils % Basophils % Nucleated RBC % PT with INR INR PTT (Actin FS) Sodium Potassium Chloride Carbon Dioxide Anion Gap BUN Creatinine Est GFR (CKD-EPI)AfAm Est GFR (CKD-EPI)NonAf POC Glucometer 133 164 Random Glucose Calcium Phosphorus Magnesium Total Bilirubin AST ALT Alkaline Phosphatase Troponin I Total Protein Albumin TSH Urine Color Urine Appearance Urine pH Ur Specific [place] Urine Protein Urine Glucose (UA) Urine Ketones Urine Blood Urine Nitrite Urine Bilirubin Urine Urobilinogen Ur Leukocyte Esterase HOSPITAL COURSE: Date of Admission:06/02/19 Date of Discharge: 06/03/19 <Adarsh Long - Last Filed: 06/03/19 16:27> Discharge Summary Problems reviewed: Yes - Home Medications Comprehensive Discharge Medication List: Ambulatory Orders Lisinopril 10 mg PO DAILY 06/02/19 Metformin HCl [Glucophage] 1,000 mg PO BID 06/02/19 Simvastatin 40 mg PO HS 06/02/19 Sitagliptin Phosphate [Januvia] 100 mg PO DAILY 06/02/19 <Aroldo Batista - Last Filed: 06/03/19 15:33> - Home Medications Comprehensive Discharge Medication List: Ambulatory Orders Lisinopril 10 mg PO DAILY 06/02/19 Metformin HCl [Glucophage] 1,000 mg PO BID 06/02/19 Simvastatin 40 mg PO HS 06/02/19 Sitagliptin Phosphate [Januvia] 100 mg PO DAILY 06/02/19 <Adarsh Long - Last Filed: 06/03/19 16:27> Reason For Visit: SYNCOPE Condition: Improved - Instructions Diet, Activity, Other Instructions: You were admitted to the hospital for syncope (passing out) We ran tests (echocardiogram, ultrasound of your carotid arteries, chest x ray and EKG) which were all found to be normal You had elevated liver enzymes, for which we did an ultrasound that showed thickening of the gallbladder wall, this needs to be discussed with your primary care physician. Your liver tests improved on the second day of admission. Medical Recommendations -When you get up out of bed, stand up slowly or otherwise you may become dizzy -Drink 6-8 glasses of water daily to remain hydrated -please see your primary care physician within 1 week of discharge -please make an appointment with Dr. Rea, the neurology director, to discuss results of your liver enzyme tests and your gallbladder ultrasound *If you experience further episodes of passing out, chest pain, shortness of breath, palpitations, nausea, vomiting, diarrhea, please return to the emergency room immediately Referrals: Isis Rea DO [Staff Physician] - 2 Weeks Demarco Jiang MD [Primary Care Provider] - 1 Week Disposition: HOME This patient is new to me today: No Emergency Visit: No Critical Care patient: No - Discharge Referral Referred to [facility] No <Aroldo Batista - Last Filed: 06/03/19 15:33> ATTENDING PHYSICIAN STATEMENT I saw and evaluated the patient. I reviewed the resident's note and discussed the case with the resident. I agree with the resident's findings and plan as documented. SUBJECTIVE: OBJECTIVE: ASSESSMENT AND PLAN: <Aroldo Batista - Last Filed: 06/03/19 15:33> ATTENDING PHYSICIAN STATEMENT I saw and evaluated the patient. I reviewed the resident's note and discussed the case with the resident. I agree with the resident's findings and plan as documented. SUBJECTIVE: Denies any chest pain, sob, or n/v OBJECTIVE: GENERAL: alert and oriented in no acute distress CVS: S1 S2 RRR no murmurs Lungs: CTAB ABDOMEN: Soft, nontender, +BS EXTREMITIES: no cyanosis or edema ASSESSMENT AND PLAN: 74 yo F with PMHx of DM, HTN, arthritis presented w/ syncope along w/ abdominal pain and n/v. Echo, tele, carotid negative. CT head negative. syncope likely vasovagal Mild elevated LFT w/ US showing gallbladder sludge w/ diffuse thickening - no evidence of cholecystitis. No fever, wbc count and abdominal pain resolved on encounter. GI f/u outpatient patient stable for d/c home today and follow up outpatient w/ PCP and GI <Adarsh Long - Last Filed: 06/03/19 16:27>
[2019-06-05 16:07] LABS: HEP B CORE AB, TOT Negative (Negative)
== END 2019-06-03 12:42 | disposition home or self-care (01) ==
LOC: JER 12:07 → JERBED 15:24
PROVIDERS: ADMIT Internal Medicine; ATTEND Internal Medicine
PROC: 3E033VG Introduction of Insulin into Peripheral Vein, Percutaneous Approach (ICD-10-PCS; principal; 2019-06-02)
PROC: 3E033GC Introduction of Other Therapeutic Substance into Peripheral Vein, Percutaneous Approach (ICD-10-PCS; 2019-06-02)
DX: R55 Syncope and collapse (principal); I10 Essential (primary) hypertension; E78.5 Hyperlipidemia, unspecified; E11.9 Type 2 diabetes mellitus without complications; R94.5 Abnormal results of liver function studies; M19.90 Unspecified osteoarthritis, unspecified site; W18.39XA Other fall on same level, initial encounter; Y93.9 Activity, unspecified; Y92.9 Unspecified place or not applicable; Z79.84 Long term (current) use of oral hypoglycemic drugs
CPT/HCPCS: 36415; 70450-TC; 71045-TC-FY; 76705-TC; 80053; 81003; 82550; 82962; 83735; 84100; 84443; 84484; 85025; 85610; 85730; 86704; 86706; 86707; 86708; 86709; 86803; 87086; 87340; 93005; 93010; 93306-TC; 93880-TC; 96372; 99285-25; G0378

== ENCOUNTER 2019-12-24 18:25 | Emergency (ER) | payer OTHER ==
[2019-12-24 18:50] VITALS: BP 137/95; PULSE 72; TEMP 98.7; BMI 23.8
--- NOTE | 2019-12-24 20:45 | PDOC ---
History of Present Illness - General Chief Complaint: Pain Stated Complaint: TUBE PROBLEM Time Seen by Provider: 12/24/19 20:00 History Source: Patient Exam Limitations: No Limitations - History of Present Illness Initial Comments: 12/24/19 20:37 74F PMH HTN, HLD, CHF, DM, gallstone pancreatitis for evaluation of possible dislocation of percutaneous biliary drain. Pt had drain in place 2/2 gallstone pancreatitis after cardiac arrest on the table during ERCP. Draing to come out after cholecystectomy scheduled at [facility]. Per patient's daughter on the phone who is the primarily takes care of the drain; she noticed movement of the stitch today without purulence, normal drainage. No f/c, n/v. There is minimal pain. NKDA. Past History - Medical History Allergies/Adverse Reactions: Allergies Allergy/AdvReac Type Severity Reaction Status Date / Time No Known Allergies Allergy Verified 12/24/19 18:43 Home Medications: Ambulatory Orders Lisinopril 5 mg PO DAILY 06/02/19 Simvastatin 40 mg PO HS 06/02/19 Sitagliptin Phosphate [Januvia] 100 mg PO DAILY 06/02/19 Aspirin [Aspirin EC] 81 mg PO DAILY #30 tablet. 08/19/19 Budesonide/Formeterol Fumarate [SYMBICORT 160/4.5mcg -] 1 puff IH DAILY 08/19/19 Cyclobenzaprine HCl 7.5 mg PO Q8H 08/19/19 Meclizine HCl [Antivert -] 12.5 mg PO Q6H PRN #20 tablet 08/19/19 Montelukast Sodium [Singulair] 10 mg IH DAILY 08/19/19 Anemia: No Asthma: No COPD: No Diabetes: Yes HTN: Yes Hypercholesterolemia: Yes - Psycho-Social/Smoking History Smoking History: Never smoked Have you smoked in the past 12 months: No - Substance Abuse Hx (Audit-C & DAST Scrn) How often the patient has a drink containing alcohol: Never Score: In Men: 4 or > Positive; In Women: 3 or > Positive: 0 Screen Result (Pos requires Nsg. Audit-10AR): Negative In the last yr the pt used illegal drug/Rx for NonMed reason: No Score: Yes response is considered Positive: 0 Screen Result (Positive result requires Nsg. DAST-10): Negative Review of Systems - Review of Systems Comments:: 12/24/19 22:28 CONSTITUTIONAL: Denies F / C HEENT: Denies headache RESP: Denies SOB CARD: Denies chest pain GI: Denies N / V, abdominal pain, inability to tolerate PO : Denies dysuria NEURO: Denies numbness, tingling, weakness MSK: Denies back pain SKIN: Denies rashes *Physical Exam - Vital Signs Last Vital Signs Temp Pulse Resp BP Pulse Ox 98.7 F 72 14 137/95 100 12/24/19 18:44 12/24/19 18:44 12/24/19 18:44 12/24/19 18:44 12/24/19 18:44 - Physical Exam 12/24/19 22:28 GEN: Well appearing, NAD, comfortable. AAOx3. HEENT: NC/AT, EOMI. No facial asymmetry. Normal voice. Supple neck w/ FROM. CV: S1/S2, RRR, no m/r/g LUNG: CTAB, no wheezes, crackles, rales, rhonchi. GI: +BS, soft, ndnt. Mild redness at the stitch but no erythema surrounding the biliary drainage; no purulence of the site, no warmth. [place] bag draining appropriately with bilious fluid. MSK: No obvious deformities of all extremities. SKIN: Warm, dry, no rashes appreciated. PSYCH: Normal mood and affect. NEURO: Moving all extremities well. ED Treatment Course - LABORATORY CBC & Chemistry Diagram: 12/24/19 21:29 12/24/19 21:29 - RADIOLOGY Radiology Studies Ordered: Category Date Time Status ABDOMEN & PELVIS CT W/O CONTR [CT] Stat CT Scan 12/24/19 20:31 Ordered Medical Decision Making - Medical Decision Making 12/24/19 22:28 74F for eval of possible percutaneous biliary drain dislocation. No purulence or bleeding, normal drainage, no f/c/n/v, minimal pain. CBC, CMP CT A/P dispo accordingly 12/24/19 22:39 CT reviewed notably resolving pancreatitis, percutaneous tube in place Labs noted; elevated but downtrending lipase; elevated but downtrending Tbili Given CT findings, asymptomatic patient, and downtrending lab abnormalities, comfortable dc home with GI, Surgery, and PCP f/u with return precautions Discharge - Discharge Information Problems reviewed: Yes Clinical Impression/Diagnosis: History of insertion of T-tube into biliary tract Condition: Stable Disposition: HOME - Admission No - Follow up/Referral Referrals: Demarco Jiang MD [Primary Care Provider] - - Patient Discharge Instructions Additional Instructions: Your lab work was reassuring. A copy of your CT report was provided. Follow up with your GI doctor Dr Martinez in the next 7 days. Provide a copy of the CT report and labs to them. Follow up with your general surgeon as scheduled. Follow up with your Primary Care Doctor regarding this ED visit in the next 10 days. Return to the nearest Emergency Department if you experience new or worsening symptoms, including but not limited to: - pus around tube insertion site - increasing redness around tube insertion site - no drainage from tube - severe pain - fevers - anything that concerns you - Post Discharge Activity
--- NOTE | 2019-12-24 20:56 | PDOC ---
Documentation entered by Kristin Das SCRIBE, acting as scribe for Nell Armenta MD. Nell Armenta MD: This documentation has been prepared by the Thiago riggins Xhesika, SCRIBE, under my direction and personally reviewed by me in its entirety. I confirm that the documentation accurately reflects all work, treatment, procedures, and medical decision making performed by me. Attending Attestation - Resident Resident Name: Hiram Mina - ED Attending Attestation I have performed the following: I have examined & evaluated the patient, The case was reviewed & discussed with the resident, I agree w/resident's findings & plan - HPI HPI: 12/24/19 20:50 The patient is a 74y/o F with a PMH of HTN, HLD, CHF, DM, gallstone pancreatitis who presents to the ED for possible dislocation of percutaneous biliary drain. Pt had drain in place 2/2 gallstone pancreatitis after cardiac arrest on the table during ERCP. Per daughter she noticed movement of the stitch today without purulence. Denies fever, chills, chest pain, SOB, palpitation, dizziness, weakness, N, V, D, abdominal pain, bladder and bowel problems, leg swelling, No sick contacts or travel. No new changes in medications. NKA PMD: Demarco Treviño 12/24/19 22:40 - Physicial Exam PE: 12/24/19 20:53 Agree with the resident's HPI and PE as documented in the electronic medical record. NAD, well appearing, EOMI, PERRL, MMM, nl conjunctiva, anicteric; neck supple. lungs clear, RRR, abdomen soft nontender. perc biliary drain in the RUQ in place with sutures, some granulation tissue at the suture site. +biliary drainage present. No CVAT. Back nontender. MARRERO x4, no focal neuro deficits. No peripheral edema. normal color for ethnicity, WWP. hypopigmentation along her forehead. 12/24/19 22:25 - Medical Decision Making 12/24/19 22:26 Vital Signs Temp Pulse Resp BP Pulse Ox 98.7 F 72 14 137/95 100 12/24/19 18:44 12/24/19 18:44 12/24/19 18:44 12/24/19 18:44 12/24/19 18:44 Vital signs reviewed within normal limits Patient without any abdominal symptoms, no pain. No peritoneal findings No fevers no systemic symptoms does not appear septic. Biliary drain appears to be in place with sutures they are present. No skin findings to suggest infection, no discharge. Appropriately draining bilious fluid. CT scan with biliary drain in place, no acute pathology is noted on the CAT scan. Laboratory results are also within normal limits, except for lipase ~1100, but it is consistently downtrending from her prior pancreatitis values (>30,000). She also has no pain in her abdomen. CT scan as below with improved appearance of her pancreas so doubt this is an acute flare or any complication related to her prior pancreatitis CBD is slightly dilated to 0.8 cm similar to previous. Improved prominence of the pancreas compared to previous imaging. Interval resolution of small free fluid seen in the abdomen and pelvis as well as the mesenteric edema from her previous infection. Diverticulosis present no diverticulitis. Likely atelectasis and small pericardial effusion. Patient does not have any chest pain or shortness of breath. Discharge with [facility] 22:39 Discharge - Discharge Information Problems reviewed: Yes Clinical Impression/Diagnosis: History of insertion of T-tube into biliary tract Condition: Stable Disposition: HOME - Admission No - Follow up/Referral Referrals: Demarco Jiang MD [Primary Care Provider] - - Patient Discharge Instructions Additional Instructions: Your lab work was reassuring. A copy of your CT report was provided. Follow up with your GI doctor Dr Martinez in the next 7 days. Provide a copy of the CT report and labs to them. Follow up with your general surgeon as scheduled. Follow up with your Primary Care Doctor regarding this ED visit in the next 10 days. Return to the nearest Emergency Department if you experience new or worsening symptoms, including but not limited to: - pus around tube insertion site - increasing redness around tube insertion site - no drainage from tube - severe pain - fevers - anything that concerns you - Post Discharge Activity
[2019-12-24 22:06] LABS: BASO % 1.1 % (0-2.0); EOS % 3.1 % (0-4.5); HEMATOCRIT 34.2 % (32.4-45.2); HEMOGLOBIN 11.5 GM/dL (10.7-15.3); LYMPH % 29.6 % (8-40); MCH 27.4 pg (25.7-33.7); MCHC 33.6 g/dl (32.0-36.0); MEAN CELL VOLUME 81.5 fl (80-96); MEAN PLT VOLUME 7.8 fl (7.5-11.1); MONO % 8.8 % (3.8-10.2); NEUT % 57.4 % (42.8-82.8); PLATELET COUNT 256 K/MM3 (134-434); RDW 14.3 % (11.6-15.6); WHITE BLOOD COUNT 5.6 K/mm3 (4.0-10.0)
[2019-12-24 22:32] LABS: ALBUMIN 3.4 g/dl (3.4-5.0); BILIRUBIN,TOTAL 1.1 mg/dL (0.2-1); BLOOD UREA NITROGEN 24.9 mg/dL (7-18); CALCIUM 9.6 mg/dL (8.5-10.1); CREATININE 0.8 mg/dL (0.55-1.3); POTASSIUM 4.4 mmol/L (3.5-5.1); TOT PROT 7.6 g/dl (6.4-8.2)
== END 2019-12-24 23:03 | disposition home or self-care (01) ==
LOC: JER 18:25
DX: T85.528A Displacement of other gastrointestinal prosthetic devices, implants and grafts, initial encounter (principal)
CPT/HCPCS: 36415; 74176-TC; 80053; 83690; 85025; 99285-25

== ENCOUNTER 2020-08-02 12:15 | Emergency (ER) | payer OTHER ==
[2020-08-02 12:21] VITALS: BMI 24.9
[2020-08-02 14:20] LABS: BASO % 0.9 % (0-2.0); EOS % 1.9 % (0-4.5); HEMATOCRIT 38.4 % (32.4-45.2); HEMOGLOBIN 13.1 GM/dL (10.7-15.3); LYMPH % 11.2 % (8-40); MCH 28.3 pg (25.7-33.7); MCHC 34.1 g/dl (32.0-36.0); MEAN CELL VOLUME 82.9 fl (80-96); MEAN PLT VOLUME 7.2 fl (7.5-11.1); MONO % 4.3 % (3.8-10.2); NEUT % 81.7 % (42.8-82.8); PLATELET COUNT 194 K/MM3 (134-434); RBC 4.63 M/mm3 (3.60-5.2); RDW 14.9 % (11.6-15.6); WHITE BLOOD COUNT 6.3 K/mm3 (4.0-10.0)
[2020-08-02 14:39] LABS: CHLORIDE 110 mmol/L (98-107); SODIUM 139 mmol/L (136-145)
[2020-08-02 14:41] LABS: CALCIUM 9.1 mg/dL (8.5-10.1)
[2020-08-02 14:42] LABS: ALBUMIN 3.8 g/dl (3.4-5.0); ANION GAP 4 MMOL/L (8-16); BLOOD UREA NITROGEN 23.7 mg/dL (7-18); CO2 26 mmol/L (21-32); GLUCOSE,RANDOM 122 mg/dL (74-106); MAGNESIUM 1.7 mg/dL (1.8-2.4)
[2020-08-02 14:45] LABS: CREATININE 0.8 mg/dL (0.55-1.3); SGOT/AST 15 U/L (15-37); SGPT/ALT 25 U/L (13-61)
[2020-08-02 14:46] LABS: BILIRUBIN,TOTAL 0.8 mg/dL (0.2-1)
[2020-08-02 14:48] LABS: ALK PHOS 87 U/L (45-117)
[2020-08-02] MEDS ORDERED: SODIUM CHLORIDE 500 ML IV STA (15:01)
[2020-08-02 15:12] LABS: URINE APPEARANCE CLEAR; URINE BILIRUBIN NEGATIVE (NEGATIVE); URINE COLOR YELLOW; URINE GLUCOSE (UA) 3+ (NEGATIVE); URINE KETONE NEGATIVE (NEGATIVE); URINE LEUK ESTERASE NEGATIVE (NEGATIVE); URINE NITRITE NEGATIVE (NEGATIVE); URINE PROTEIN NEGATIVE (NEGATIVE); URINE UROBILINOGEN 0.2 mg/dL (0.2-1.0)
[2020-08-02] MEDS ORDERED: MAGNESIUM OXIDE 400 MG TABLET (FP) PO ONE (15:33)
[2020-08-02] MEDS ORDERED: MAGNESIUM OXIDE 400 MG TABLET (FP) ONE (16:02)
[2020-08-02 16:13] VITALS: BP 107/78; PULSE 76; TEMP 98.6
== END 2020-08-02 16:27 | disposition home or self-care (01) ==
LOC: JER 12:15
PROC: 3E0337Z Introduction of Electrolytic and Water Balance Substance into Peripheral Vein, Percutaneous Approach (ICD-10-PCS; principal; 2020-08-02)
DX: R42 Dizziness and giddiness (principal)
CPT/HCPCS: 36415; 71045-TC-FY; 80053; 81003; 82962; 83735; 84443; 84484; 85025; 87086; 87804; 93005; 93010; 96360; 99285-25; C9803; U0003; U0005

== ENCOUNTER 2021-04-21 14:53 | Observation (INO) | payer OTHER ==
[2021-04-21 15:15] VITALS: BMI 22.6
[2021-04-21] MEDS ORDERED: SODIUM CHLORIDE 0.9% 500 ML INFUS.BAG IV ONE ×2 (15:58→18:17)
[2021-04-21 16:23] LABS: BASO % 0.3 % (0-2.0); EOS % 0.3 % (0-4.5); HEMATOCRIT 43.9 % (32.4-45.2); HEMOGLOBIN 14.6 GM/dL (10.7-15.3); LYMPH % 8.4 % (8-40); MCH 27.6 pg (25.7-33.7); MCHC 33.2 g/dl (32.0-36.0); MEAN CELL VOLUME 83.2 fl (80-96); MEAN PLT VOLUME 6.8 fl (7.5-11.1); PLATELET COUNT 185 10^3/uL (134-434); RBC 5.27 M/mm3 (3.60-5.2); RDW 14.6 % (11.6-15.6); WHITE BLOOD COUNT 6.7 K/mm3 (4.0-10.0)
[2021-04-21 16:43] LABS: CHLORIDE 108 mmol/L (98-107); SODIUM 140 mmol/L (136-145)
[2021-04-21 16:45] LABS: ALBUMIN 3.7 g/dl (3.4-5.0); ANION GAP 12 MMOL/L (8-16); CALCIUM 8.6 mg/dL (8.5-10.1); CO2 20 mmol/L (21-32); GLUCOSE,RANDOM 152 mg/dL (74-106); LIPASE 138 U/L (73-393)
[2021-04-21 16:46] LABS: BLOOD UREA NITROGEN 24.8 mg/dL (7-18)
[2021-04-21 16:48] LABS: CREATININE 0.7 mg/dL (0.55-1.3); SGOT/AST 18 U/L (15-37); SGPT/ALT 27 U/L (13-61)
[2021-04-21 16:50] LABS: BILIRUBIN,TOTAL 0.8 mg/dL (0.2-1); TOT PROT 7.2 g/dl (6.4-8.2)
[2021-04-21 16:51] LABS: ALK PHOS 97 U/L (45-117)
[2021-04-21] MEDS ORDERED: FAMOTIDINE 20 MG TABLET PO ONE (19:00)
[2021-04-21] MEDS ORDERED: FAMOTIDINE 20 MG TABLET ONE (19:05)
[2021-04-21] MEDS ORDERED: LACTATED RINGERS SOLUTION 1000 ML INFUS.BAG IV ONE (20:43)
[2021-04-21 21:44] LABS: INR 1.1 (0.83-1.09); PROTHROMBIN TIME (PATIENT) 12.7 SEC (9.7-13.0)
[2021-04-21] MEDS ORDERED: ENOXAPARIN NA (PORCINE) 40 MG/0.4 ML DISP.SYRIN SQ ONE (22:30)
[2021-04-21 22:46] LABS: URINE APPEARANCE CLEAR; URINE BILIRUBIN NEGATIVE (NEGATIVE); URINE COLOR YELLOW; URINE KETONE 80 (NEGATIVE); URINE LEUK ESTERASE NEGATIVE (NEGATIVE); URINE NITRITE NEGATIVE (NEGATIVE); URINE PROTEIN NEGATIVE (NEGATIVE); URINE UROBILINOGEN 0.2 mg/dL (0.2-1.0)
[2021-04-21] MEDS ORDERED: ENOXAPARIN NA (PORCINE) 60 MG/0.6 ML DISP.SYRIN SQ ONE (22:57)
[2021-04-22] MEDS ORDERED: ACETAMINOPHEN 325 MG TABLET (FP) PO PRN (01:07)
[2021-04-22 01:22] LABS: N-TERMINAL BNP 122.6 pg/ml (5-450)
[2021-04-22 05:20] VITALS: TEMP 98.6
[2021-04-22 06:40] LABS: HEMATOCRIT 42.7 % (32.4-45.2); HEMOGLOBIN 13.8 GM/dL (10.7-15.3); MCH 27.5 pg (25.7-33.7); MCHC 32.4 g/dl (32.0-36.0); MEAN CELL VOLUME 85.1 fl (80-96); MEAN PLT VOLUME 7.3 fl (7.5-11.1); PLATELET COUNT 182 10^3/uL (134-434); RBC 5.02 M/mm3 (3.60-5.2); RDW 14.7 % (11.6-15.6); WHITE BLOOD COUNT 4.5 K/mm3 (4.0-10.0)
[2021-04-22] MEDS ORDERED: INSULIN (NOVOLOG) ASPART 100 UNITS/ML 10ML VIAL SQ SCH (07:00)
[2021-04-22 07:02] LABS: CALCIUM 7.8 mg/dL (8.5-10.1)
[2021-04-22 07:03] LABS: BLOOD UREA NITROGEN 22.5 mg/dL (7-18)
[2021-04-22 07:06] LABS: CREATININE 0.6 mg/dL (0.55-1.3)
[2021-04-22 07:51] VITALS: BP 122/66
[2021-04-22] MEDS ORDERED: LOPERAMIDE HCL 2 MG CAPSULE PO PRN (09:54)
[2021-04-22] MEDS ORDERED: ENOXAPARIN NA (PORCINE) 60 MG/0.6 ML DISP.SYRIN SQ SCH (10:00)
[2021-04-22] MEDS ORDERED: PANTOPRAZOLE 40 MG TABLET PO SCH (10:00)
[2021-04-22] MEDS ORDERED: BUDESONIDE/FORMETEROL FUMARATE 160/4.5 mcg INHALER IH SCH (10:00)
[2021-04-22] MEDS ORDERED: MONTELUKAST NA 10 MG TABLET PO SCH (10:00)
[2021-04-22 10:29] VITALS: PULSE 93
[2021-04-22] MEDS ORDERED: DONEPEZIL HCL 10 MG TABLET (FP) PO SCH (22:00)
[2021-04-22] MEDS ORDERED: ATORVASTATIN CA 20 MG TABLET (FP) PO SCH (22:00)
== END 2021-04-22 10:31 | disposition home or self-care (01) ==
LOC: JER 14:53 → UNDOADMOB 22:25 → JERBED 22:25 → INTOOBSV 22:25 → JERBED 04-22 10:19 → UNDODISOB 04-22 10:31
PROVIDERS: ADMIT Internal Medicine; ATTEND Nurse Practitioner Acute Care
PROC: 3E023GC Introduction of Other Therapeutic Substance into Muscle, Percutaneous Approach (ICD-10-PCS; principal; 2021-04-22)
PROC: 3E0337Z Introduction of Electrolytic and Water Balance Substance into Peripheral Vein, Percutaneous Approach (ICD-10-PCS; 2021-04-22)
DX: A08.4 Viral intestinal infection, unspecified (principal); K85.10 Biliary acute pancreatitis without necrosis or infection; I10 Essential (primary) hypertension; E78.5 Hyperlipidemia, unspecified; E11.9 Type 2 diabetes mellitus without complications; Z90.49 Acquired absence of other specified parts of digestive tract; R09.02 Hypoxemia; R00.0 Tachycardia, unspecified
CPT/HCPCS: 36415; 71045-TC-FY; 74177-TC; 80048; 80053; 81003; 82550; 82962; 83690; 83880; 84443; 84484; 85025; 85027; 85379; 85610; 87804; 93005; 93010; 96372; 99285-25; C9803; G0378; U0003; U0005

== ENCOUNTER 2022-03-24 13:10 | Emergency (ER) | payer OTHER ==
[2022-03-24 13:37] VITALS: BMI 24.7
[2022-03-24] MEDS ORDERED: ACETAMINOPHEN 1000 MG/100 ML BAG IVPB ONE (13:56)
[2022-03-24] MEDS ORDERED: LACTATED RINGERS SOLUTION 1000 ML INFUS.BAG IV ONE (13:57)
[2022-03-24] MEDS ORDERED: ACETAMINOPHEN INJECTION 100 ML IVPB ONE (14:10)
[2022-03-24 14:40] LABS: BASO % 0.3 % (0-2.0); EOS % 0.2 % (0-4.5); HEMATOCRIT 38.6 % (32.4-45.2); HEMOGLOBIN 12.4 GM/dL (10.7-15.3); LYMPH % 10.6 % (8-40); MCHC 32.1 g/dl (32.0-36.0); MEAN CELL VOLUME 80.9 fl (80-96); MEAN PLT VOLUME 6.9 fl (7.5-11.1); MONO % 4.5 % (3.8-10.2); NEUT % 84.4 % (42.8-82.8); PLATELET COUNT 179 10^3/uL (134-434); RBC 4.77 M/mm3 (3.60-5.2); WHITE BLOOD COUNT 5.8 K/mm3 (4.0-10.0)
[2022-03-24 15:02] LABS: ALBUMIN 3.3 g/dl (3.4-5.0); BLOOD UREA NITROGEN 26.4 mg/dL (7-18); CALCIUM 8.3 mg/dL (8.5-10.1)
[2022-03-24 15:05] LABS: CREATININE 0.9 mg/dL (0.55-1.3)
[2022-03-24 15:07] LABS: BILIRUBIN,TOTAL 0.8 mg/dL (0.2-1); TOT PROT 6.6 g/dl (6.4-8.2)
[2022-03-24] MEDS ORDERED: AZITHROMYCIN 250 MG TABLET PO ONE (15:24)
[2022-03-24] MEDS ORDERED: KETOROLAC TROMETHAMINE 15 MG/ML VIAL IVPUSH ONE (15:40)
[2022-03-24] MEDS ORDERED: AZITHROMYCIN 500 MG TABLET ONE (15:43)
[2022-03-24] MEDS ORDERED: KETOROLAC TROMETHAMINE 15 MG/ML VIAL ONE (15:43)
[2022-03-24 15:51] VITALS: BP 134/69; PULSE 74; RESP 19; TEMP 98.8
== END 2022-03-24 16:20 | disposition home or self-care (01) ==
LOC: JER 13:10
PROC: 3E0333Z Introduction of Anti-inflammatory into Peripheral Vein, Percutaneous Approach (ICD-10-PCS; principal; 2022-03-24)
PROC: 3E0333Z Introduction of Anti-inflammatory into Peripheral Vein, Percutaneous Approach (ICD-10-PCS; 2022-03-24)
DX: J12.82 Pneumonia due to coronavirus disease 2019 (principal)
CPT/HCPCS: 0241U-QW; 36415; 71045-TC-FY; 80053; 85025; 96374; 96375; 99284-25

== ENCOUNTER 2023-05-20 11:50 | Emergency (ER) | payer OTHER ==
[2023-05-20 12:14] VITALS: RESP 18; BMI 23.2
[2023-05-20] MEDS: SODIUM CHLORIDE IV ONE (13:14)
[2023-05-20 14:17] LABS: BASO % 0.1 % (0-2.0); HEMATOCRIT 40.5 % (32.4-45.2); HEMOGLOBIN 13.6 GM/dL (10.7-15.3); LYMPH % 9.8 % (8-40); MCH 28.2 pg (25.7-33.7); MCHC 33.6 g/dl (32.0-36.0); MEAN CELL VOLUME 84.1 fl (80-96); MEAN PLT VOLUME 6.9 fl (7.5-11.1); MONO % 4.3 % (3.8-10.2); NEUT % 85.8 % (42.8-82.8); PLATELET COUNT 208 10^3/uL (134-434); RBC 4.82 M/mm3 (3.60-5.2); RDW 13.9 % (11.6-15.6); WHITE BLOOD COUNT 11.9 K/mm3 (4.0-10.0)
[2023-05-20 14:28] LABS: PH,URINE 5.5 (5.0-8.0); URINE APPEARANCE CLEAR; URINE BILIRUBIN NEGATIVE (NEGATIVE); URINE COLOR YELLOW; URINE GLUCOSE (UA) 3+ (NEGATIVE); URINE KETONE NEGATIVE (NEGATIVE); URINE LEUK ESTERASE NEGATIVE (NEGATIVE); URINE NITRITE NEGATIVE (NEGATIVE); URINE PROTEIN NEGATIVE (NEGATIVE); URINE UROBILINOGEN 0.2 mg/dL (0.2-1.0)
[2023-05-20 14:47] LABS: POTASSIUM 4.2 mmol/L (3.5-5.1)
[2023-05-20 14:49] LABS: CALCIUM 8.8 mg/dL (8.5-10.1)
[2023-05-20 14:50] LABS: ALBUMIN 3.5 g/dl (3.4-5.0); BLOOD UREA NITROGEN 20.2 mg/dL (7-18)
[2023-05-20 14:53] LABS: CREATININE 0.9 mg/dL (0.55-1.3)
[2023-05-20 14:55] LABS: BILIRUBIN,TOTAL 0.9 mg/dL (0.2-1)
[2023-05-20] MEDS ORDERED: ACETAMINOPHEN 1000 MG/100 ML BAG IVPB ONE (15:23)
[2023-05-20 17:25] VITALS: BP 116/49; PULSE 80; TEMP 98.1
== END 2023-05-20 17:26 | disposition home or self-care (01) ==
LOC: JER 11:50
PROC: 3E0337Z Introduction of Electrolytic and Water Balance Substance into Peripheral Vein, Percutaneous Approach (ICD-10-PCS; principal; 2023-05-20)
PROC: 3E0337Z Introduction of Electrolytic and Water Balance Substance into Peripheral Vein, Percutaneous Approach (ICD-10-PCS; 2023-05-20)
DX: R53.1 Weakness (principal); M79.10 Myalgia, unspecified site; R68.83 Chills (without fever); Z20.822 Contact with and (suspected) exposure to COVID-19
CPT/HCPCS: 0241U-QW; 36415; 71046-TC-FY; 80053; 81003; 84484; 85025; 87040; 87086; 93005; 93010; 96360; 96361; 99285-25

== ENCOUNTER 2024-03-29 11:57 | Observation (INO) | payer OTHER ==
[2024-03-29 13:56] LABS: BASO % 0.7 % (0-2.0); EOS % 1.7 % (0-4.5); HEMATOCRIT 35.9 % (32.4-45.2); HEMOGLOBIN 11.3 GM/dL (10.7-15.3); LYMPH % 17.8 % (8-40); MCH 26.7 pg (25.7-33.7); MCHC 31.5 g/dl (32.0-36.0); MEAN CELL VOLUME 84.8 fl (80-96); MEAN PLT VOLUME 6.7 fl (7.5-11.1); MONO % 5.4 % (3.8-10.2); NEUT % 74.4 % (42.8-82.8); PLATELET COUNT 251 10^3/uL (134-434); RBC 4.23 M/mm3 (3.60-5.2); RDW 13.4 % (11.6-15.6); WHITE BLOOD COUNT 6.2 K/mm3 (4.0-10.0)
[2024-03-29 14:03] LABS: PROTHROMBIN TIME (PATIENT) 11.3 SEC (9.7-13.0)
[2024-03-29 14:06] LABS: ACTIVATED PTT 38.3 SECONDS (25.2-36.5)
[2024-03-29 14:17] LABS: POTASSIUM 4.9 mmol/L (3.5-5.1)
[2024-03-29 14:18] LABS: CALCIUM 9.9 mg/dL (8.5-10.1)
[2024-03-29 14:19] LABS: ALBUMIN 3.4 g/dl (3.4-5.0); BLOOD UREA NITROGEN 25.6 mg/dL (7-18); MAGNESIUM 1.4 mg/dL (1.8-2.4)
[2024-03-29] MEDS: SODIUM CHLORIDE 0.9% 500 ML INFUS.BAG IV ONE (14:19)
[2024-03-29 14:22] LABS: CREATININE 0.7 mg/dL (0.55-1.3)
[2024-03-29 14:24] LABS: BILIRUBIN,TOTAL 0.5 mg/dL (0.2-1); TOT PROT 6.9 g/dl (6.4-8.2)
[2024-03-29 14:24] LABS: PH,URINE 6.5 (5.0-8.0); URINE APPEARANCE CLEAR; URINE BILIRUBIN NEGATIVE (NEGATIVE); URINE COLOR YELLOW; URINE GLUCOSE (UA) NEGATIVE (NEGATIVE); URINE KETONE NEGATIVE (NEGATIVE); URINE LEUK ESTERASE NEGATIVE (NEGATIVE); URINE NITRITE NEGATIVE (NEGATIVE); URINE PROTEIN NEGATIVE (NEGATIVE); URINE UROBILINOGEN 0.2 mg/dL (0.2-1.0)
[2024-03-29] MEDS ORDERED: PATIENT'S OWN MEDICATION (NON-FORMULARY) (Tizanidine Hcl [Tizanidine Hcl] 4 MG Tablet) PO PRN (16:44)
[2024-03-29] MEDS ORDERED: PATIENT'S OWN MEDICATION (NON-FORMULARY) (Meloxicam [Meloxicam] 15 MG Tablet) PO PRN (16:44)
[2024-03-29] MEDS: MAGNESIUM SULFATE IN WATER 2 GM/50 ML IVPB IVPB ONE (17:09)
[2024-03-29] MEDS: ATORVASTATIN CA 10 MG TABLET (FP) PO SCH (21:53)
[2024-03-29] MEDS: PREGABALIN 100 MG CAPSULE PO SCH (21:53)
[2024-03-29] MEDS: INSULIN ASPART SLIDING SCALE (NOVOLOG) 1 VIAL SQ SCH (21:53)
[2024-03-30 04:08] VITALS: BMI 25.7
[2024-03-30 07:27] LABS: HEMATOCRIT 35.6 % (32.4-45.2); HEMOGLOBIN 11.4 GM/dL (10.7-15.3); MCH 26.9 pg (25.7-33.7); MEAN CELL VOLUME 84.3 fl (80-96); MEAN PLT VOLUME 7.1 fl (7.5-11.1); MONO % 7.4 % (3.8-10.2); NEUT % 64.6 % (42.8-82.8); PLATELET COUNT 256 10^3/uL (134-434); RBC 4.23 M/mm3 (3.60-5.2); RDW 13.8 % (11.6-15.6); WHITE BLOOD COUNT 5.8 K/mm3 (4.0-10.0)
[2024-03-30 07:43] LABS: POTASSIUM 4.5 mmol/L (3.5-5.1)
[2024-03-30 07:51] LABS: CALCIUM 9.1 mg/dL (8.5-10.1)
[2024-03-30 07:52] LABS: ALBUMIN 3.2 g/dl (3.4-5.0); BLOOD UREA NITROGEN 25.7 mg/dL (7-18); MAGNESIUM 1.7 mg/dL (1.8-2.4)
[2024-03-30 07:55] LABS: CREATININE 0.7 mg/dL (0.55-1.3); PHOSPHOROUS 3.8 mg/dL (2.5-4.9)
[2024-03-30 07:57] LABS: BILIRUBIN,TOTAL 0.6 mg/dL (0.2-1); TOT PROT 6.5 g/dl (6.4-8.2)
[2024-03-30] MEDS: DONEPEZIL HCL 10 MG TABLET (FP) PO SCH (10:40)
[2024-03-30] MEDS: ENOXAPARIN NA (PORCINE) 40 MG/0.4 ML DISP.SYRIN SQ SCH (10:40)
[2024-03-30] MEDS: MAGNESIUM SULFATE IN WATER 2 GM/50 ML IVPB IVPB ONE (10:40)
[2024-03-31 08:16] LABS: HEMATOCRIT 35.1 % (32.4-45.2); HEMOGLOBIN 11.3 GM/dL (10.7-15.3); MCH 27.1 pg (25.7-33.7); MCHC 32.3 g/dl (32.0-36.0); MEAN CELL VOLUME 83.8 fl (80-96); MEAN PLT VOLUME 6.9 fl (7.5-11.1); PLATELET COUNT 256 10^3/uL (134-434); RBC 4.18 M/mm3 (3.60-5.2); RDW 13.6 % (11.6-15.6); WHITE BLOOD COUNT 5.3 K/mm3 (4.0-10.0)
[2024-03-31 08:30] LABS: POTASSIUM 4.5 mmol/L (3.5-5.1)
[2024-03-31 08:36] LABS: BLOOD UREA NITROGEN 20.1 mg/dL (7-18); CALCIUM 8.8 mg/dL (8.5-10.1); MAGNESIUM 1.8 mg/dL (1.8-2.4)
[2024-03-31 08:37] LABS: ALBUMIN 3.2 g/dl (3.4-5.0)
[2024-03-31 08:39] LABS: CREATININE 0.6 mg/dL (0.55-1.3)
[2024-03-31 08:40] LABS: PHOSPHOROUS 3.1 mg/dL (2.5-4.9)
[2024-03-31 08:41] LABS: BILIRUBIN,TOTAL 0.9 mg/dL (0.2-1); TOT PROT 6.5 g/dl (6.4-8.2)
[2024-03-31 09:27] VITALS: RESP 16
[2024-03-31 09:31] VITALS: BP 127/87; PULSE 70; TEMP 98.2
== END 2024-03-31 14:26 | disposition home or self-care (01) ==
LOC: JER 11:57 → JERBED 15:51 → J4W 19:55
PROVIDERS: ADMIT Internal Medicine; ATTEND Internal Medicine
PROC: 3E033GC Introduction of Other Therapeutic Substance into Peripheral Vein, Percutaneous Approach (ICD-10-PCS; principal; 2024-03-29)
PROC: 3E0337Z Introduction of Electrolytic and Water Balance Substance into Peripheral Vein, Percutaneous Approach (ICD-10-PCS; 2024-03-29)
DX: R55 Syncope and collapse (principal); R42 Dizziness and giddiness; N17.9 Acute kidney failure, unspecified; I11.0 Hypertensive heart disease with heart failure; E11.9 Type 2 diabetes mellitus without complications; E78.5 Hyperlipidemia, unspecified; I50.9 Heart failure, unspecified; I25.10 Atherosclerotic heart disease of native coronary artery without angina pectoris; I25.2 Old myocardial infarction; Z95.5 Presence of coronary angioplasty implant and graft; Z79.84 Long term (current) use of oral hypoglycemic drugs
CPT/HCPCS: 0241U-QW; 36415; 70450-TC; 71045-TC-FY; 80053; 81003; 82962; 83735; 84100; 84484; 85025; 85027; 85610; 85730; 86850; 86900; 86901; 87086; 87186; 93005; 93010; 93306-TC; 96365; 96367; 96372; 99285-25; G0378